=== PATIENT | male | born 2005 | race African-American/Black ===

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

== ENCOUNTER 2023-07-14 13:23 | Emergency (ER) | payer SELFPAY ==
[2023-07-14] MEDS ORDERED: cefTRIAXone (ROCEPHIN) 1 GM VIAL ONE ×3 (14:03→14:14)
[2023-07-14 14:10] LABS: Bilirubin Negative (Negative); Blood, Urine Negative (Negative); Clarity Clear (Clear); Glucose, Urine (Dipstick) Negative (Negative); Ketone, Urine Negative (Negative); Leukocyte Negative (Negative); Nitrite Negative (Negative); Protein, Urine (Dipstick) Negative (Neg-Trace); Specific Gravity, Urine 1.015 (1.005-1.030); Urobilinogen 0.2 mg/dL (Less than 2)
[2023-07-14 14:17] LABS: CAUTI Indications for Culture Pelvic or flank pain; RBC/HPF 0-3 HPF (0-3); Squamous Epithelial 0-3 HPF (0-3); Urine Culture Reflex No No; WBC/HPF 0-3 HPF (0-3)
[2023-07-15 11:25] LABS: HIV (1/2) Antibody/Antigen Non-Reactive (NonReactive); HIV 1/2 INDEX 0.35 S/CO (<1.00)
[2023-07-15 13:30] LABS: Chlam.trachomatis by PCR,Urine DETECTED (NotDetected); GC N.gonorrhoeae PCR,UrineVOID Not Detected (NotDetected)
[2023-07-15 13:37] LABS: Syphilis Antibody Nonreactive (Nonreactive); Syphilis Antibody Index 0.06 S/CO (<1.00 Non-Reactive)
== END 2023-07-14 14:41 | disposition home or self-care (01) ==
LOC: NAV ERS 13:23
DX: Z20.2 Contact with and (suspected) exposure to infections with a predominantly sexual mode of transmission (principal)
CPT/HCPCS: 81001; 86780; 87389; 87491; 87591; 96372; 99283; J0696

== ENCOUNTER 2023-12-20 17:03 | Emergency (ER) | payer OTHER, SELFPAY ==
[2023-12-20] MEDS ORDERED: Lidocaine 1% (PF) 30 ML VIAL ONE (18:13)
[2023-12-20] MEDS ORDERED: Bacitracin 1 PK ONE (18:37)
[2023-12-20] MEDS ORDERED: Boostrix 0.5 ML (Tdap) VIAL (>/=7 yrs of age) ONE (18:38)
== END 2023-12-20 18:59 | disposition home or self-care (01) ==
LOC: NAV ERS 17:03
DX: S51.811A Laceration without foreign body of right forearm, initial encounter (principal); Z23 Encounter for immunization; W22.09XA Striking against other stationary object, initial encounter
CPT/HCPCS: 12002; 90471; 90715; J2001

== ENCOUNTER 2023-12-31 12:17 | Emergency (ER) | payer SELFPAY | END 2023-12-31 12:45 | disposition home or self-care (01) | LOC: NAV ERS 12:17 | DX: S41.111D Laceration without foreign body of right upper arm, subsequent encounter (principal); Z48.02 Encounter for removal of sutures; X58.XXXD Exposure to other specified factors, subsequent encounter ==